=== PATIENT | female | born 1995 | race Caucasian/White ===

== ENCOUNTER 2021-11-13 20:37 | Emergency (ER) | payer BC, SELFPAY ==
[2021-11-13 20:45] VITALS: BP 109/73; PULSE 70; TEMP 35.9; O2SAT 98; BMI 17.9
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
[2021-11-13 21:50] LABS: HCG Qualitative* Negative (Negative)
--- NOTE | 2021-11-13 21:54 | PC.NURSE ---
pt requesting water and some crackers. SO at BS and supportive. Lab at BS
[2021-11-13 22:25] LABS: Basophils Percent Auto 0.5 % (0.0-3.0); Eosinophils Percent Auto 1.6 % (0.0-7.0); Hematocrit 37.5 % (33.0-51.0); Hemoglobin* 12.8 gm/dL (12.0-16.0); Immature Granulocytes Abs Auto 0.01 K/uL (0.00-0.30); Lymphocytes Percent Auto 48.1 % (20-44); Mean Corpuscular HGB Conc 34 gm/dL (32-36); Mean Corpuscular Hemoglobin 30 pg (26-34); Mean Corpuscular Volume 89 fL (80-100); Monocytes Percent Auto 8.8 % (0.0-11.0); Neutrophils Percent Auto 40.8 % (42.0-72.0); Platelet Count* 242 K/uL (140-440); RDW Coefficient of Variation % 11.6 % (11.5-15.5); Red Blood Count 4.23 m/uL (4.00-5.20); White Blood Count* 4.41 K/uL (4.50-11.00)
[2021-11-13 22:28] LABS: Acetaminophen* < 10.0 ug/mL (10.0-30.0); Ethanol* < 0.01 % (0.01-0.03); Salicylate* < 1.0 mg/dL (1.0-10)
[2021-11-13 22:29] LABS: Slide Review Reflex No
[2021-11-13 22:38] LABS: Chloride* 102 mmol/L (96-114); Sodium* 139 mmol/L (135-149)
[2021-11-13 22:40] LABS: Creatinine* 0.7 mg/dL (0.5-1.5); Estimated Glomerular Filt Rate 121 ml/min
[2021-11-13 22:41] LABS: Blood Urea Nitrogen* 16 mg/dL (5-24); Calcium* 8.6 mg/dL (8.4-10.6); Carbon Dioxide* 26 mmol/L (20-32); Glucose* 100 mg/dL (60-115)
--- NOTE | 2021-11-13 23:29 | ED.NURSE ---
DEC assessment started with pt.
[2021-11-14] MEDS: OLANZapine 5 MG TAB.RAPDIS PO (00:50)
[2021-11-14 00:53] VITALS: BP 105/62; PULSE 64
[2021-11-14 01:00] LABS: SARS PCR* Negative SARS-CoV-2 (Negative)
--- NOTE | 2021-11-14 02:19 | PC.NURSE ---
Patient information faxed to [facility]. Both are screening patient at this time.
[2021-11-14 02:41] LABS: Amphetamine Screen Urine Negative (Negative); Barbiturate Screen Urine Negative (Negative); Benzodiazepines Screen Urine Negative (Negative); Cannabinoid Screen Urine Negative (Negative); Cocaine Screen Urine Negative (Negative); Methadone Screen Urine Negative (Negative); Methamphetamines Screen Urine Negative (Negative); Opiate Screen Urine Negative (Negative); Oxycodone Screen Urine Negative (Negative); Phencyclidine Screen Urine Negative (Negative); Tricyclic Antidepressant Urine Negative (Negative)
--- NOTE | 2021-11-14 03:48 | PC.NURSE ---
[facility] called, unable to take patient due to patient acuity and current patient population on their unit. Still awaiting response from [place].
[2021-11-14 08:02] VITALS: BP 88/53; PULSE 65; RESP 16; TEMP 36.5; O2SAT 98
--- NOTE | 2021-11-14 08:09 | ED.NURSE ---
is aware that she may need to go to [facility]), as finding beds for her condition is limited. did call and he will be over. brfst was ordered.
--- NOTE | 2021-11-14 10:31 | ED.NURSE ---
had signed a safety plan per dr latif. did leave with and needed to go out to the car to hand her the instructions. did call [facility] and aware that she was discharged. was re deced.
--- NOTE | 2021-11-14 21:11 | ED.NURSE ---
Pt and called inquiring which medication pt received last night in the ER. Health Care Law Specialist provided information to pt and , pt was given Olanzapine (Zyprexa).
== END 2021-11-14 09:45 | disposition home or self-care (01) ==
PROVIDERS: Emergency Provider Family Medicine; PCP Family Medicine
DX: R45.851 Suicidal ideations (principal); F32.A Depression, unspecified
CPT/HCPCS: 36415; 80048; 80143; 80179; 80306; 82077; 84703; 85025; 87426; 87635; 99284; A9270

== ENCOUNTER 2024-09-16 09:34 | Outpatient (CLI) | payer BC, SELFPAY ==
--- OUTSIDE RECORDS SUMMARY | 2024-09-20 00:29 | XMS_ITS | Clinical Summary ---
Author Organization [facility] Address [address] [place] [id number] Care Team Providers Care Senior Sales Operations Analyst Name Role Phone [facility] Primary Care Provider + Allergies Active Allergy Reactions Criticality Noted Date Comments Latex Rash,Itching,Erythema Low 06/14/2010 Latex gloves = hands got red & itchy with dry irritation [place] Flavor Rash High 09/23/2012 Seasonal - Only allergic to the pollen & when john is not washed Outside skin - Only allergic to the pollen & when john is not washed Medications ibuprofen (Motrin IB) 200 mg tabletIndicatio ns:S/P section Take 1-3 Tablets (200-600 mg) by mouth every 6 hours if needed (for uterine cramping). Take with food. 100 Tablet 1 Active acetaminophen (TYLENOL) 325 mg tablet Take 650 mg by mouth every 4 hours if needed. Active gabapentin (NEURONTIN) 300 mg capsuleIndicati ons:Anxiety Take 1 Capsule (300 mg) by mouth 3 times daily. 270 Capsule 3 2 Active clonazePAM (KLONOPIN) 0.5 mg tabletIndicatio ns:Anxiety Take 1 Tablet (0.5 mg) by mouth once daily if needed for Anxiety. 15 Tablet 5 3 Active zolpidem (AMBIEN) 5 mg tabletIndicatio ns:Insomnia, idiopathic Take 1 Tablet (5 mg) by mouth at bedtime if needed for Sleep. 90 Tablet 1 3 Active ISOtretinoin 30 mg capsuleIndicati ons:Acne vulgaris Take 1 pill twice a day with food, ideally healthy fats (avocado, nut butters, etc). 60 Capsule 5 Active ISOtretinoin 30 mg capsuleIndicati ons:Acne vulgaris Take 1 pill twice a day with food, ideally healthy fats (avocado, nut butters, etc). 60 Capsule 5 08/27/19 25 Discontinu ed(Reorder (E-cancel not sent)) Active Problems Problem Noted Date Diagnosed Date Protein-calorie malnutrition, unspecified severi ty 10/15/2021 Bipolar disorder 08/30/2020 Social anxiety disorder 09/21/2019 Suicidal ideation 09/19/2019 Marijuana abuse 09/19/2019 Autism spectrum 09/01/2019 Chronic insomnia 01/26/2019 Overview (01/26/2019): Trazodone and remeron gave her hangover effect the next day. Melatonin didn't work. OTC pm meds didn't work. seroquel helped years ago. Need for prophylactic vaccination against rabies 01/26/2019 Overview (01/26/2019): Patient had her baseline series of immunizations in 2014. She had a booster 01/2019 Infertility associated with anovulation 09/27/19 16 History of conduct disorder 06/14/2010 Lactose intolerance 08/08/2009 Resolved Problems Problem Noted Date Diagnosed Date Resolved Date Mood disorder 09/19/2019 05/30/2022 Mood disorder 06/15/2019 11/07/2019 Scabies infestation 07/20/2015 05/15/19 17 Memory loss 07/06/2012 03/26/2018 Overview (07/06/2012): Vague reports unable to remember daily activities and previous day. 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 [address] [address] Jasmine Nichole, DO Results 08/26/2024 Orders Only [facility] [address] [address] Jasmine Nichole, <No scans attached> 08/25/2024 2:15 PM CDT Office Visit [facility] [address] [address] Jasmine Nichole, Derm Problem 08/25/2024 Travel 07/21/2024 2:00 PM CDT Office Visit [facility] [address] [address] Jasmine Nichole, Derm Problem 07/21/2024 Telephone [facility] [address] [address] Jasmine Nichole, 07/21/2024 Travel from Last 3 Months Immunizations Immunization Administration Dates Next Due DTaP 09/21/1995, 5,1994,1994 Hepatitis B (Peds) 04/02/1995,1994, 995 Hib Conjugate, Unspecified 09/21/1995,,1994,1994 Human Papilloma Virus Vaccine 11/28/2009 ,02/06/2009,12/07/2008,2008 Inactivated Polio Vaccine 09/21/1995,,1994,1994 Influenza Virus, Unspecified 03/07/2013 Influenza,LAIV4 Live Intrana dianelys (Flumist) 03/07/2013 MMR 09/21/1995 MMRV 08/19/2006 Rabavert 01/26/2019 Rabies Vaccine 10/12/2013,09/28/2013,09/21/2013 Td (Age >=7 Years) 10/23/2006,08/19/2006 Tdap 11/29/2020,05/12/2016 Varicella Vaccine 02/09/1996 Family History Medical History Relation Name Comments Good Health Daughter Alcohol/Drug Father alcohol Good Health Half-Brother x 1 Good Health Half-Sister x 2 Cancer Maternal Grandfather ?? Heart Disease Maternal Grandfather Stroke Maternal Grandmother Cancer Mother skin Good Health Mother Cancer Paternal Grandfather Relation Name Status Comments Daughter Alive Father Alive Half-Brother x 1 Alive Half-Sister x 2 Alive Maternal Grandfather Maternal Grandmother Mother Alive Paternal Grandfather Alive Paternal Grandmother Alive Social History Tobacco Use Types Packs/Day Years Used Date Smoking Tobacco: Never Smokeless Tobacco: Never Tobacco Cessation:Counseling Given: Yes Alcohol Use Standard Drinks/Week Comments Not Currently 0 (1 standard drink = 0.6 oz pur e alcohol) PHQ-2 Answer Date Recorded PHQ-2 TOTAL SCORE 2 10/15/2021 Social Connections Answer Date Recorded Do you often feel lonely or isolated from those around you? 0 03/17/2024 Financial Resource Strain Answer Date R ecorded Difficulty of Paying Living Expenses 3 03/17/2024 Difficulty of Paying Living Expenses Not on file 03/17/2024 Food Insecurity Answer Date Recorded Do you worry your food will run out before you are able to buy more? 1 03/17/2024 Transportation Needs Answer Date Record ed Does lack of transportation keep you from medica l appointments? 1 03/17/2024 Does lack of transportation keep you from work, meetings or getting things that you need? 1 03/17/2024 Housing Stability Answer Date Recorded What is your housing situation today? 1 03/17/2024 Utilities Answer Date Recorded Do you have trouble paying f or utilities (for example, heat, electricity, water, phone)? 1 03/17/2024 Comments No Sex and Gender Information Value Date Recorded Sex Assigned at Female 09/06/2020 11:28 AM CDT Legal Sex Female 7:53 AM [employer] Gender Identity Female 09/06/2020 11:28 AM CDT Sexual Orientation Not on file Occupation Industry Job Start Date Job End Date [employer] - [employer] Not on file Not on file Not on file Obstetrics History Para Term AB IAB SAB Ectopic Multiple Livin g Live Births 2 1 1 0 2 2 Date Outcome GA Total Labor Labor/2nd/3rd Weight Sex Type Anes PTL Talia A1 A5 Name Clin 2020 Term 39w 0d 0h 02m 0h 02m 3.43 kg (7 lb 9 oz) F C-Sec tion Spinal Livin g 9 9 Mark KUMAR Justin Carlyl e, MD Complications:None Delivery Location:Hospital ( [facility] Comments Surrogate. No issues with th e or deliver. Little girl Last Filed Vital Signs Vital Sign Reading Time Taken Comments Blood Pressure 100/57 05/10/2024 5:42 PM [employer] Pulse 88 05/10/2024 5:42 PM [employer] Temperature 36.8 C (98.2 F) 05/10/2024 5:42 PM [employer] Respiratory Rate 15 05/10/2024 5:42 PM [employer] Oxygen Saturation 99% 05/10/2024 5:42 PM [employer] Inhaled Oxygen Concentration - - Weight 58.5 kg (129 lb) 05/10/2024 5:42 PM [employer] Height 170.8 cm (5' 7.24) 02/04/2024 11:[address] Body Mass Index 20.06 02/04/2024 11:56 AM [employer] Plan of Treatment Upcoming Encounters Date Type Department Care Team (Late st Contact Info) Description 09/22/2024 2:00 PM CDT Office Visit [facility] [address] [address] aJsmine Nichole, [address] [place] [address] Health Maintenance Due Date Last Done Comments Depression screening for age 12+ 10/04/2022 10/04/2021, 08/30/2020, 12/20/2019, Additional history exists Pap test for age 21-65 07/17/2023 (Verified in Care Everywhere or Patient Record), [facility]/27/2017 [facility] COVID-19 vaccine series ( season) 2023 Influenza Vaccine (Season Ended) 2024 03/07/2013, 03/07/2013 BMI (ht and wt on same day) for age 18+ 02/03/2025 02/04/2024, 09/03/2023, 06/10/2022, Additional history exists Tetanus booster 11/29/2030 11/29/2020, 04/30, 10/23/2006, Additional history exists Hepatitis B series for 19+ Completed 04/02, 1994, 1994 Tdap Completed 11/29/2020, 05/12/2016 HIV for age 15-65 Completed 04/14/2022, 09/11/2014 Hepatitis C screening for age 18-79 Completed 06/10/2022, 04/14/2022 Pneumococcal series for age 6-49 Aged Out No longer eligible based on patient's age to complete this topic Procedures Procedure Name Priority Date/Time Associated Diagnosis Comments ALT (SGPT) Routine 08/25/2024 2:08 PM CDT High risk medication use Acne vulgaris AST (SGOT) Routine 08/25/2024 2:08 PM CDT High risk medication use Acne vulgaris URINE Routine 08/25/2024 2:08 PM CDT High risk medication use Acne vulgaris TRIGLYCERIDES Routine 08/25/2024 2:08 PM CDT High risk medication use Acne vulgaris URINE POCT Routine 07/21/2024 2:18 PM CDT High risk medication use LC HCV ANTIBODY RFX TO QUANT PCR Routine 06/10/2022 3:09 PM CDT Pre-op examination LC HIV-1/O/2, 4TH GENERATION Routine 04/14/2022 4:31 PM [employer] Pre-op exam from Last 3 Months or Most Recently Relevant to Health Maintenance Results * TRIGLYCERIDES (08/25/2024 2:08 PM CDT) TRIGLYCERIDES 109 <150 mg/dL [facility] Blood BLOOD SPECIMEN / Unknown 08/25/2024 2:08 PM CDT 08/25/2024 2:08 PM CDT us Jasmine Nichole DO CHEMISTRY Final R esult [facility] [address] [place] [address], [place] [phone] [facility] [address] [place] [address] * ALT (SGPT) (08/25/2024 2:08 PM CDT) ALT 13 6 - 29 U/L [facility] Blood BLOOD SPECIMEN / Unknown 08/25/2024 2:08 PM CDT 08/25/2024 2:08 PM CDT Jasmine Nichole DO CHEMISTRY Final R esult Performing Organization Address City/[facility]/ZIP Co de Phone Number [facility] [address] [place] [address], [place] [phone] [facility] [address] [place] [address] * AST (SGOT) (08/25/2024 2:08 PM CDT) AST 17 10 - 30 U/L [facility] Blood BLOOD SPECIMEN / Unknown 08/25/2024 2:08 PM CDT 08/25/2024 2:08 PM CDT Jasmine Nichole DO CHEMISTRY Final R esult [facility] [address] [place] [address], [place] [phone] [facility] [address] [place] [address] * URINE (08/25/2024 2:08 PM CDT) HCG, QL, URINE NEGATIVE NEGATIVE [facility] Urine URINE SPECIMEN / Unknown 08/25/2024 2:08 PM CDT 08/25/2024 2:08 PM CDT us Jasmine Nichole DO URINE Final R esult [facility] [address] [place] [address], [place] [phone] [facility] [address] [place] [address] * POCT Urine (07/21/2024 2:18 PM CDT) Pathologist [facility] POC HCG URINE NEGATIVE NEGATIVE [facility] ( Urine URINE SPECIMEN / Unknown 07/21/2024 2:18 PM CDT 07/21/2024 2:18 PM CDT us Jasmine Coyle Dayanara DO URINE Final R esult Performing Organization Address City/[facility]/ZIP Co de Phone Number [facility] [address] [place] [address], [facility] ( [address] [place] [address] * LC HCV ANTIBODY RFX TO QUANT PCR (06/10/2022 3:09 PM CDT) [facility] HCV Ab Non Reactive Non Reactive 06/12/2022 10:06 PM CDT [facility] Blood BLOOD SPECIMEN / Unknown Venipuncture / Unknown 06/10/2022 3:09 PM CDT 06/10/2022 3:11 PM CDT Narrative [facility] - 06/12/2022 10:06 PM CDT Performed at: [address] [place] [address] [id number] [employer]: Stevie Broussard MD, Phone: [phone] us [facility] Final Resul t [facility] ([facility]) [address] [place] [address], * LC HIV-1/O/2, 4TH GENERATION (04/14/2022 4:31 PM [employer]) HIV Scr 4th Gen Non Reactive Non Reactive 04/17/2022 9:06 PM [employer] [facility] ([facility]) Comment: HIV Negative HIV-1/HIV-2 antibodies and HIV-1 p24 antigen were NOT detected. There is no laboratory evidence of HIV infection. Blood BLOOD SPECIMEN / Unknown Venipuncture / Unknown 04/14/2022 4:31 PM [employer] 04/14/2022 4:34 PM [employer] Narrative [facility] ([facility]) - 04/17/2022 9:06 PM [employer] Performed at: [address] [place] [address] [id number] [employer]: Stevie Broussard MD, Phone: [phone] us Babatunde Francisco MD LABORATORY Final Result [facility] ([facility]) [address] [place] [address], from Last 3 Months or Most Recently Relevant to Health Maintenance Insurance [facility] [employer]UE [employer]WORK Advance Directives * Full Code (Latest Code Status on File) Date Activated Date Inactivated Comments 02/15/2021 8:46 AM 02/17/2021 7:27 PM Question Answer Comments Code Status Discussion: Reviewed Preferences * Full Code Date Activated Date Inactivated Comments 02/15/2021 6:19 AM 02/15/2021 8:46 AM Question Answer Comments Code Status Discussion: Reviewed Preferences * Full Code Date Activated Date Inactivated Comments 10/01/2019 9:13 PM 10/03/2019 7:58 PM Question Answer Comments Code Status Discussion: Not Discussed * Full Code Date Activated Date Inactivated Comments 09/20/2019 11:15 AM 09/22/2019 3:13 PM Question Answer Comments Code Status Discussion: Not Discussed Care Teams Senior Sales Operations Analyst Relationship Specialty Start Date End Date [facility] [address] [place] [address] PCP - General 10/27/23
== END 2024-09-16 09:35 | disposition home or self-care (01) ==
LOC: AMB 09-19 09:24
PROVIDERS: PCP Family Medicine; Visit Provider Internal Medicine
DX: X83.8XXA Intentional self-harm by other specified means, initial encounter; Y92.71 Barn as the place of occurrence of the external cause
CPT/HCPCS: A0429